=== PATIENT | male | born 1980 | race Caucasian/White ===

== ENCOUNTER 2019-11-26 16:57 | Emergency (ER) | payer OTHER ==
[~2019-11-26] VITALS: Ht 182.9 cm; Wt 93.2 kg
[2019-11-26 17:25] VITALS: TEMP 98
[2019-11-26 19:28] VITALS: BP 132/76; PULSE 82
== END 2019-11-26 19:28 | disposition home or self-care (01) ==
LOC: COL.ER 16:57
DX: S43.402A Unspecified sprain of left shoulder joint, initial encounter (principal); X50.0XXA Overexertion from strenuous movement or load, initial encounter
CPT/HCPCS: J1170; J2405